=== PATIENT | female | born 2005 | race Caucasian/White ===

== ENCOUNTER 2023-12-18 19:56 | Emergency (ER) | payer MEDICAID, OTHER ==
[2023-12-18 20:13] VITALS: TEMP 97.3
[2023-12-18] MEDS ORDERED: TYLENOL EXTRA STRENGTH 500 MG ONE (20:19)
[2023-12-18] MEDS: TYLENOL EXTRA STRENGTH 500 MG PO STA (20:20)
[2023-12-18] MEDS: ZOFRAN ODT 4 MG PO ONE (20:20)
[2023-12-18] MEDS ORDERED: ZOFRAN ODT 4 MG ONE (20:20)
[2023-12-18 20:29] LABS: HCG URINE TEST NEGATIVE (NEGATIVE)
[2023-12-18 21:16] VITALS: BP 102/69; PULSE 71; RESP 16; O2SAT 97
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
[2023-12-18] MEDS ORDERED: MORPHINE SULFATE 4 MG INJ IM ONE (21:39)
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
== END 2023-12-18 21:28 | disposition home or self-care (01) ==
LOC: ED 19:56
DX: S06.0X0A Concussion without loss of consciousness, initial encounter (principal); V89.0XXA Person injured in unspecified motor-vehicle accident, nontraffic, initial encounter; R51.9 Headache, unspecified
CPT/HCPCS: 70450; 81025; 99283; Q0162; A9270-GY

== ENCOUNTER 2024-07-03 09:17 | Emergency (ER) | payer OTHER ==
[2024-07-03 09:34] VITALS: PULSE 90; RESP 18; TEMP 97.5; O2SAT 98
--- NOTE | 2024-07-03 09:41 | ERPHSYRPT ---
- History of Present Illness Time Seen by Provider: 07/03/24 09:35 Source: patient, family Exam Limitations: no limitations Patient Subjective Stated Complaint: pt here for sorethroat since sunday, was seen and placed zithromax Triage Nursing Assessment: pt alert walked in, resp easy, skin w/d/p, right tonsil swollen and red.moves all ext well, Physician History: This is a 18-year-old white female patient who has had a sore throat, cough and right earache as well as left posterior lateral for approximately 4 days. Patient was seen in outpatient clinic and prescribed azithromycin. She is taken 2 days of this medication and still has 3 more days of this antibiotic remaining. Her sore throat pain persists. Patient does not have chest pain. She has no abdominal pain. She has had no nausea vomiting or diarrhea symptoms. Timing/Duration: day(s) (4), worse Cough Quality/Degree: mild, dry cough Possible Cause: no prior episodes Modifying Factors: Improves With: coughing Associated Symptoms: cough, sore throat, No chest pain/soreness, No dizziness, No headache, No shortness of breath Allergies/Adverse Reactions: naproxen Adverse Reaction (Verified 12/18/23 21:39) Home Medications: Azithromycin 250 mg [Zithromax 250 MG TABLET] 250 mg PO ZPACK 07/03/24 [History] Hx Tetanus, Diphtheria Vaccination/Date Given: No Hx Influenza Vaccination/Date Given: No Hx Pneumococcal Vaccination/Date Given: No Immunizations Up to Date: Yes Travel Risk - International Travel Have you traveled outside of the country in past 3 weeks: No - Emerging Infectious Disease Are you exhibiting symptoms associated with any current EIDs: No - Review of Systems Constitutional: No Symptoms Eyes: No Symptoms Ears, Nose, & Throat: Ear Pain (Right earache), Throat Pain Respiratory: No Symptoms Cardiac: No Symptoms Abdominal/Gastrointestinal: No Symptoms Genitourinary Symptoms: No Symptoms Musculoskeletal: Other (Left posterior lateral chest wall pain) Skin: No Symptoms Neurological: No Symptoms Psychological: No Symptoms Endocrine: No Symptoms Hematologic/Lymphatic: No Symptoms Immunological/Allergic: No Symptoms All Other Systems: Reviewed and Negative - Past Medical History Pertinent Past Medical History: No Neurological History: No Pertinent History ENT History: No Pertinent History Cardiac History: No Pertinent History Respiratory History: No Pertinent History Endocrine Medical History: No Pertinent History Musculoskeletal History: No Pertinent History GI Medical History: No Pertinent History History: No Pertinent History Psycho-Social History: No Pertinent History Female Reproductive Disorders: No Pertinent History - Past Surgical History Past Surgical History: No Neuro Surgical History: No Pertinent History Cardiac: No Pertinent History Respiratory: No Pertinent History Gastrointestinal: No Pertinent History Genitourinary: No Pertinent History Musculoskeletal: No Pertinent History Female Surgical History: No Pertinent History - Female History Hx Last Menstrual Period: jun Hx Now: No - Social History Smoking Status: Never smoker Exposure to second hand smoke: No Drug Use: none - Social Determinants of Health Will the patient participate in the screening: Declined to provide - Nursing Vital Signs Nursing Vital Signs: Initial Vital Signs Blood Pressure 114/76 07/03/24 09:30 O2 Sat by Pulse Oximetry 98 07/03/24 09:30 Pain Scale Pain Intensity 8 - Physical Exam General Appearance: no apparent distress, alert, anxiety, thin Eye Exam: PERRL/EOMI, eyes nml inspection Ears, Nose, Throat Exam: normal ENT inspection, moist mucous membranes Neck Exam: normal inspection, non-tender, supple, full range of motion Respiratory Exam: normal breath sounds, lungs clear, airway intact, No chest tenderness, No respiratory distress Cardiovascular Exam: regular rate/rhythm, normal heart sounds, normal peripheral pulses Gastrointestinal/Abdomen Exam: soft, normal bowel sounds, No tenderness Pelvic Exam: not done Rectal Exam: not done Back Exam: normal inspection, normal range of motion, No CVA tenderness, No vertebral tenderness Extremity Exam: normal inspection, normal range of motion, pelvis stable Neurologic Exam: alert, oriented x 3, cooperative, master sheet clerk II-XII nml as tested, nml cerebellar function, nml station & gait, sensation nml Skin Exam: normal color, warm, dry Lymphatic Exam: No adenopathy SpO2 Interpretation: normal SpO2: 98 - Course Nursing assessment & vital signs reviewed: Yes Ordered Tests: Active Orders 24 hr Category Date Time Status CHEST 1 VIEW (PORTABLE) Stat Exams 07/03/24 09:41 Completed Lab/Rad Data: Laboratory Results 07/03/24 07/03/24 Range/Units 10:05 10:05 Influenza Type A Ag NEGATIVE (NEGATIVE) Influenza Type B Ag NEGATIVE (NEGATIVE) RSV (PCR) NEGATIVE (NEGATIVE) SARS-CoV-2 (PCR) NEGATIVE (NEGATIVE) Group A Strep Antibody NOT DETECTED (NEGATIVE) - Progress Progress: re-examined Air Movement: good Progress Note: 07/03/24 09:49 My medical decision making and the assignment of low complexity to this patient's medical issue today is based on review of the patient's past medical history, review the patient's medication list, reviewed patient drug allergy list, history present illness and physical findings on examination. The workup in this patient includes chest x-ray, viral swabs and group A strep test. Differential diagnosis includes but is not limited to pneumonia, bronchitis, str ep pharyngitis, viral illness 07/03/24 10:06 The chest x-ray was interpreted by the radiologist. I reviewed the impression. Impression states normal chest x-ray. 07/03/24 11:02 I interpreted the patient's laboratory data results. Based on the laboratory data results. There are no acute, emergent medical issues Blood Culture(s) Obtained: No Counseled pt/family regarding: lab results, diagnosis, need for follow-up, rad results Medical Desision Making - Independent Historian Additional History obtained from: Mother - Diagnostic Testing Diagnostic test were ordered, analyzed, and reviewed by me: Yes - Risk of complications The pt has a mod risk of morbidity or mortality based on: Need for prescription drug management - Departure Departure Disposition: Home Clinical Impression: Pharyngitis Condition: Stable Critical Care Time: No Referrals: DOCTOR,NO FAMILY [Primary Care Provider] - Follow up/PCP as directed Additional Instructions: Drink plenty of fluids. Take your antibiotics and other prescription medication as prescribed. Call your primary care provider today, 07/03/2024, to make arrangements for follow-up appointment for further evaluation and management. Prescriptions: Prednisone 10 mg [Deltasone 10 mg] 10 mg PO TID #12 tablet Hydrocodone/Acetaminophen [Hydrocodone-Acetamn 7.5-325/15] 10 ml PO Q8H PRN #60 ml MDD 30 ml PRN Reason: Cough
--- NOTE | 2024-07-03 10:05 | XRAY ---
Indication: Cough. Sore throat. Comparison: None Portable chest demonstrates normal heart, lungs, and bony thorax.
[2024-07-03 10:55] LABS: INFLUENZA A NEGATIVE (NEGATIVE); INFLUENZA B NEGATIVE (NEGATIVE); RESPIRATORY SYNCTIAL VIRUS NEGATIVE (NEGATIVE); SARS-CoV-2 Xpert Express NEGATIVE (NEGATIVE)
[2024-07-03 11:11] VITALS: BP 114/73
== END 2024-07-03 11:15 ==
LOC: ED 09:17
DX: J02.9 Acute pharyngitis, unspecified (principal); R05.1 Acute cough; H92.01 Otalgia, right ear; Z79.52 Long term (current) use of systemic steroids; Z79.891 Long term (current) use of opiate analgesic; Z79.899 Other long term (current) drug therapy
CPT/HCPCS: 0241U; 71045; 87651; 99283